=== PATIENT | female | born 1970 | race Caucasian/White ===

== ENCOUNTER 2016-08-14 11:38 | Emergency (ER) | payer MEDICARE ==
--- NOTE | 2016-08-14 12:20 | ER Document Report ---
ED Extremity Problem, Lower - General Chief Complaint: Leg Swelling Stated Complaint: SWELLING/PAIN LEFT LEG Time Seen by Provider: 08/14/16 12:11 Mode of Arrival: Ambulatory Information source: Patient TRAVEL OUTSIDE OF THE U.S. IN LAST 30 DAYS: No - HPI Patient complains to provider of: Pain, Swelling Location: Leg Occurred: Other - 2-3 days Onset/Duration: Gradual Quality of pain: Achy, Fullness, Pressure Severity: Moderate Pain Level: 3 Recent injury: No Exacerbated by: Movement Relieved by: Nothing Notes: Patient is a 45-year-old female who presents to the emergency room complaining of left lower extremity pain and swelling that has been going on for a few days , she recently moved to this area from [place], had an [address] 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, smoker denies chest pain or shortness of breath - Related Data Allergies/Adverse Reactions: enoxaparin [From Lovenox] Allergy (Verified 08/14/16 11:45) hypertention, bradycardia lamotrigine [From Lamictal] Allergy (Verified 08/14/16 11:45) Dada Jj syndrome lithium Allergy (Verified 08/14/16 11:45) throat swelling Past Medical History - General Information source: Patient - Social History Smoking Status: Former Smoker Frequency of alcohol use: Social Drug Abuse: None Family History: None Patient has suicidal ideation: No Patient has homicidal ideation: No Neurological Medical History: Reports: Hx Migraine Renal/ Medical History: Denies: Hx Peritoneal Dialysis GI Medical History: Reports: Hx Gastroesophageal Reflux Disease Musculoskeltal Medical History: Reports Hx Arthritis Past Surgical History: Reports: Hx Orthopedic Surgery - left foot Review of Systems - Review of Systems Constitutional: No symptoms reported EENT: No symptoms reported Cardiovascular: No symptoms reported Respiratory: No symptoms reported Gastrointestinal: No symptoms reported Genitourinary: No symptoms reported Female Genitourinary: No symptoms reported Musculoskeletal: See HPI Skin: No symptoms reported Hematologic/Lymphatic: No symptoms reported Neurological/Psychological: No symptoms reported -: Yes All other systems reviewed and negative Physical Exam - Vital signs Vitals: Temp Pulse Resp BP Pulse Ox 97.6 F 60 20 128/82 H 99 08/14/16 11:45 08/14/16 11:45 08/14/16 11:45 08/14/16 11:45 08/14/16 11:45 - Notes Notes: - General General appearance: Appears well, Alert In distress: None - HEENT Head: Normocephalic, Atraumatic Eyes: Normal Conjunctiva: Normal Extraocular movements intact: Yes Eyelashes: Normal Pupils: PERRL - Respiratory Respiratory status: No respiratory distress - Cardiovascular Rhythm: Regular - Abdominal Inspection: Normal - Back Back: Normal - Extremities General upper extremity: Normal inspection General lower extremity: Lower extremity with calf pain, swelling over medial malleolus, positive Homans sign distal sensation and motor is intact with 2+ DP pulses - Neurological Neuro grossly intact: Yes Orientation: AAOx4 [employer] Coma Scale Eye Opening: Spontaneous Héctro Coma Scale Verbal: Oriented [employer] Coma Scale Motor: Obeys Commands Héctor Coma Scale Total: 15 - Psychological Associated symptoms: Normal affect, Normal mood - Skin Skin Temperature: Warm Skin Moisture: Dry Skin Color: Normal Course - Re-evaluation Re-evalutation: 08/14/16 13:32 Extremity venous Doppler negative for DVT, patient will be discharged with instructions for follow-up, advised to return if symptoms worsen, patient acknowledges understanding and agreement with this plan - Vital Signs Vital signs: Temp Pulse Resp BP Pulse Ox 97.8 F 67 20 107/57 L 99 08/14/16 13:26 08/14/16 13:26 08/14/16 13:26 08/14/16 13:26 08/14/16 13:26 - Diagnostic Test Radiology reviewed: Image reviewed, Reports reviewed Discharge - Discharge Clinical Impression: Left leg pain Condition: Stable Disposition: HOME, SELF-CARE Instructions: Leg Pain Nonspecific ([facility]) Additional Instructions: Follow up with your primary care provider and an orthopedic surgeon in one to 2 days. Return to the emergency room immediately if symptoms worsen or any additional concerns. Ice and elevate the affected extremity. Limit weightbearing. Referrals: JULIET RICARDO MD [ACTIVE STAFF] - Follow up as needed
[2016-08-14 13:28] VITALS: BP 107/57
--- NOTE | 2016-08-14 16:36 | XCELERA REPORT ---
[address] [address] Lower Extremity Venous Evaluation Name: EVELIN DENG Age: 45 yrs Gender: Female : 1970 Patient Status: Preadmit Patient Location: ER Study Date: 08/14/2016 12:45 PM Procedure: Color flow and duplex imaging of the veins of the left lower extremity as well as the right Common Femoral vein. Reason For Study: LLE pain Ordering Physician: YVROSE SOTO Performed By: Martine Lancaster Right Sided Venous Evaluation The right common femoral vein is fully compressible. Spontaneous and phasic flow is present in the right common femoral vein. Left Sided Venous Evaluation Normal vessel filling wall to wall, compression and augmentation as well as Colour flow down to the infrageniculate veins. Critical Findings Called in to the ER. Interpretation Summary No duplex evidence of DVT or obstruction in the left lower extremity nor in the right Common Femoral vein. : YVROSE SOTO > Kike Browne
== END 2016-08-14 13:36 | disposition home or self-care (01) ==
LOC: ER 11:38
DX: M79.605 Pain in left leg (principal); M79.89 Other specified soft tissue disorders; Z87.891 Personal history of nicotine dependence
CPT/HCPCS: 93971; 99283

== ENCOUNTER 2016-10-28 15:09 | Emergency (ER) | payer MEDICARE ==
--- NOTE | 2016-10-28 16:04 | ER Document Report ---
ED Medical Screen (RME) - General Chief Complaint: Leg Pain Stated Complaint: LEG PAIN Time Seen by Provider: 10/28/16 15:58 Notes: This 46-year-old female patient comes emergency room complaining of left medial leg pain. She reports last week she saw her primary care provider complaining of pain around her ankle and she was sent for a venous Doppler on either Wednesday or Wednesday of last week. It was negative. She states 2 days later she began having pain in the proximal left medial calf area. Over the next few days the pain went straight down into her ankle and then into her foot. She states it does feel swollen. She states she elevated her legs yesterday but it did not help. She does take methotrexate. She does not take antiplatelet drugs by history. She had DVT and PE a few years ago. She is very tender to light palpation of the medial and anterior medial proximal calf region. She is not tender in the posterior calf. TRAVEL OUTSIDE OF THE U.S. IN LAST 30 DAYS: No - Related Data Allergies/Adverse Reactions: enoxaparin [From Lovenox] Allergy (Verified 10/28/16 15:16) hypertention, bradycardia lamotrigine [From Lamictal] Allergy (Verified 10/28/16 15:16) Dada Jj syndrome lithium Allergy (Verified 10/28/16 15:16) throat swelling Home Medications: Current Home Medications Hydroxychloroquine Sulfate 400 mg PO DAILY 10/28/16 [History] Linaclotide [Linzess] 290 mcg PO DAILY 10/28/16 [History] Lorazepam [Ativan 0.5 mg Tablet] 0.5 mg PO PRN PRN 10/28/16 [History] Lubiprostone [Amitiza 24 Mcg Capsule] 24 mcg PO BID 10/28/16 [History] Methotrexate Sodium/Pf [Methotrexate 25 mg/ml Vial] 25 mg IJ Q7D 10/28/16 [ History] Ropinirole HCl [Requip] 2 mg PO DAILY 10/28/16 [History] Zolpidem Tartrate [Ambien] 10 mg PO QHS 10/28/16 [History] Past Medical History Neurological Medical History: Reports: Hx Migraine Renal/ Medical History: Denies: Hx Peritoneal Dialysis GI Medical History: Reports: Hx Gastroesophageal Reflux Disease Musculoskeltal Medical History: Reports Hx Arthritis Past Surgical History: Reports: Hx Orthopedic Surgery - left foot Physical Exam - Vital signs Vitals: Temp Pulse Resp BP Pulse Ox 98.0 F 80 18 126/66 H 99 10/28/16 15:15 10/28/16 15:15 10/28/16 15:15 10/28/16 15:15 10/28/16 15:15 Course - Vital Signs Vital signs: Temp Pulse Resp BP Pulse Ox 98.0 F 80 18 126/66 H 99 10/28/16 15:15 10/28/16 15:15 10/28/16 15:15 10/28/16 15:15 10/28/16 15:15
[2016-10-28 16:34] LABS: ABSOLUTE EOSINOPHILS # (AUTO) 0.1 10^3/uL (0.0-0.6); ABSOLUTE LYMPHOCYTES (AUTO) 0.9 10^3/uL (0.5-4.7); ABSOLUTE MONOCYTES (AUTO) 0.2 10^3/uL (0.1-1.4); ABSOLUTE NEUT (AUTO) 4.6 10^3/uL (1.7-8.2); BASOPHILS % (AUTO) 0.4 % (0-2); HEMOGLOBIN 13.2 g/dL (12.0-15.5); HGB HCT DIFFERENCE 0.6; MEAN CORPUSCULAR HEMOGLOBIN 27.7 pg (27.0-33.4); MEAN CORPUSCULAR HGB CONC 33.7 g/dL (32.0-36.0); MEAN CORPUSCULAR VOLUME 82 fl (80-97); RED BLOOD COUNT 4.75 10^6/uL (3.72-5.28); RED CELL DISTRIBUTION WIDTH 14.4 % (11.5-14.0); SEGMENTED NEUTROPHILS % (AUTO) 78.6 % (42-78); WHITE BLOOD COUNT 5.9 10^3/uL (4.0-10.5)
[2016-10-28 16:54] LABS: ALANINE AMINOTRANSFERASE 37 U/L (9-52); ALBUMIN 4.4 g/dL (3.5-5.0); ALKALINE PHOSPHATASE 62 U/L (38-126); ANION GAP 11 (5-19); ASPARTATE AMINO TRANSFERASE 19 U/L (14-36); BILIRUBIN,DIRECT 0.3 mg/dL (0.0-0.4); BILIRUBIN,TOTAL 0.5 mg/dL (0.2-1.3); BLOOD UREA NITROGEN 10 mg/dL (7-20); CALCIUM 10.1 mg/dL (8.4-10.2); CARBON DIOXIDE 26 mmol/L (22-30); CHLORIDE 105 mmol/L (98-107); CREATININE RESULT 0.78 mg/dL (0.52-1.25); GLUCOSE 83 mg/dL (75-110); SODIUM 141.6 mmol/L (137-145); TOTAL PROTEIN 7.1 g/dL (6.3-8.2)
--- NOTE | 2016-10-28 17:09 | ER Document Report ---
ED Extremity Problem, Lower - General Mode of Arrival: Ambulatory Information source: Patient TRAVEL OUTSIDE OF THE [place] IN LAST 30 DAYS: No <IRINA WILL - Last Filed: 10/28/16 22:19> <SHANIQUA THOMPSON - Last Filed: 10/28/16 23:28> - General Chief Complaint: Leg Pain Stated Complaint: LEG PAIN Time Seen by Provider: 10/28/16 15:58 Notes: Patient is a 46-year-old female who presents to the emergency department today with complaints of left leg pain. Patient states she had a Doppler study done of her left lower extremity 1 week ago, and also in July both of which were negative. Patient complains of pain in her left medial leg radiating down into her foot which began two days after her last dopplar study, 5 days ago. (IRINA WILL) - Related Data Allergies/Adverse Reactions: enoxaparin [From Lovenox] Allergy (Verified 10/28/16 15:16) hypertention, bradycardia lamotrigine [From Lamictal] Allergy (Verified 10/28/16 15:16) Dada Jj syndrome lithium Allergy (Verified 10/28/16 15:16) throat swelling Home Medications: Current Home Medications Hydroxychloroquine Sulfate 400 mg PO DAILY 10/28/16 [History] Linaclotide [Linzess] 290 mcg PO DAILY 10/28/16 [History] Lorazepam [Ativan 0.5 mg Tablet] 0.5 mg PO PRN PRN 10/28/16 [History] Lubiprostone [Amitiza 24 Mcg Capsule] 24 mcg PO BID 10/28/16 [History] Methotrexate Sodium/Pf [Methotrexate 25 mg/ml Vial] 25 mg IJ Q7D 10/28/16 [ History] Ropinirole HCl [Requip] 2 mg PO DAILY 10/28/16 [History] Zolpidem Tartrate [Ambien] 10 mg PO QHS 10/28/16 [History] Past Medical History - General Information source: Patient - Social History Smoking Status: Never Smoker Cigarette use (# per day): No Frequency of alcohol use: None Drug Abuse: None Lives with: Family Family History: None Patient has suicidal ideation: No Patient has homicidal ideation: No Neurological Medical History: Reports: Hx Migraine GI Medical History: Reports: Hx Gastroesophageal Reflux Disease Musculoskeltal Medical History: Reports Hx Arthritis Past Surgical History: Reports: Hx Orthopedic Surgery - left foot <IRINA WILL - Last Filed: 10/28/16 22:19> Review of Systems - Review of Systems Constitutional: No symptoms reported EENT: No symptoms reported Cardiovascular: No symptoms reported Respiratory: No symptoms reported Gastrointestinal: No symptoms reported Genitourinary: No symptoms reported Female Genitourinary: No symptoms reported Musculoskeletal: See HPI, Other - left leg pain Skin: No symptoms reported Hematologic/Lymphatic: No symptoms reported Neurological/Psychological: No symptoms reported -: Yes All other systems reviewed and negative <IRINA WILL - Last Filed: 10/28/16 22:19> Physical Exam <IRINA WILL - Last Filed: 10/28/16 22:19> <SHANIQUA THOMPSON - Last Filed: 10/28/16 23:28> - Vital signs Vitals: Temp Pulse Resp BP Pulse Ox 98.0 F 80 18 126/66 H 99 10/28/16 15:15 10/28/16 15:15 10/28/16 15:15 10/28/16 15:15 10/28/16 15:15 - Notes Notes: Physical Exam: General: Alert, appears well. HEENT: Normocephalic. Atraumatic. PERRL. Extraocular movements intact. Oropharynx clear. Neck: Supple. Non-tender. Respiratory: No respiratory distress. Clear and equal breath sounds bilaterally. Cardiovascular: Regular rate and rhythm. Abdominal: Normal Inspection. Non-tender. No distension. Normal Bowel Sounds. Back: Non-tender. No deformity or step off. Extremities: Moves all four extremities. Upper extremities: Normal inspection. Normal ROM. Lower extremities: See skin exam Neurological: Normal cognition. AAOx4. Normal speech. Psychological: Normal affect. Normal Mood. Skin: Erythematous changes to medial aspect of left proximal leg with associated tenderness with palpation. (IRINA WILL) Course - Laboratory Result Diagrams: 10/28/16 16:10 10/28/16 16:10 <IRINA WILL - Last Filed: 10/28/16 22:19> - Laboratory Result Diagrams: 10/28/16 16:10 10/28/16 16:10 <SHANIQUA THOMPSON - Last Filed: 10/28/16 23:28> - Re-evaluation Re-evalutation: 10/28/16 Patient with signs and symptoms of superficial thrombophlebitis and Dopplers showing this as well. Patient recommended to do warm packs and take naproxen. Apparently cannot do this because of ulcer. Recommended to take Tylenol. Stable for discharge. Follow-up with PMD. (SHANIQUA THOMPSON) - Vital Signs Vital signs: Temp Pulse Resp BP Pulse Ox 98.0 F 88 18 145/78 H 98 10/28/16 15:15 10/28/16 20:58 10/28/16 20:58 10/28/16 20:58 10/28/16 20:58 - Laboratory Laboratory results interpreted by me: 10/28/16 16:10 RDW 14.4 H Seg Neutrophils % 78.6 H Discharge <IRINA WILL - Last Filed: 10/28/16 22:19> <SHANIQUA THOMPSON - Last Filed: 10/28/16 23:28> - Discharge Clinical Impression: Superficial thrombophlebitis Qualifiers: Superficial thrombophlebitis-Involved body area: lower extremity Laterality: left Qualified Code(s): I80.02 - Phlebitis and thrombophlebitis of superficial vessels of left lower extremity Condition: Stable Disposition: HOME, SELF-CARE Instructions: Superficial Phlebitis ([facility]) Prescriptions: Naproxen [Naprosyn 250 mg Tablet] 250 mg PO DAILY PRN #20 tablet PRN Reason: Referrals: GILDARDO MANCUSO MD [Primary Care Provider] - Follow up as needed Scribe Attestation: 10/28/16 23:28 I personally performed the services described in the documentation, reviewed and edited the documentation which was dictated to the scribe in my presence, and it accurately records my words and actions. (SHANIQUA THOMPSON) Scribe Documentation - Scribe Written by Leanna:: Leanna Gutierrez, 10/28/2016 2224 acting as scribe for :: Sari <IRINA WILL - Last Filed: 10/28/16 22:19>
--- NOTE | 2016-10-28 17:37 | RADIOLOGY REPORT (SQ) ---
EXAM DESCRIPTION: ANKLE LEFT COMPLETE COMPLETED DATE/TIME: 10/28/2016 5:06 pm REASON FOR STUDY: pain COMPARISON: None. NUMBER OF VIEWS: Three views. TECHNIQUE: AP, lateral, and oblique radiographic images acquired of the left ankle. LIMITATIONS: None. FINDINGS: MINERALIZATION: Normal. BONES: No fracture or dislocation. Plantar calcaneal spurs are present. JOINTS: No effusions. SOFT TISSUES: No soft tissue swelling. No foreign body. OTHER: No other significant finding. IMPRESSION: Calcaneal spurs with no acute abnormality. TECHNICAL DOCUMENTATION: JOB ID: [id number] [employer]- All Rights Reserved
--- NOTE | 2016-10-28 17:38 | RADIOLOGY REPORT (SQ) ---
EXAM DESCRIPTION: TIBIA FIBULA LEFT COMPLETED DATE/TIME: 10/28/2016 5:06 pm REASON FOR STUDY: pain COMPARISON: None. NUMBER OF VIEWS: Two views. TECHNIQUE: Two radiographic images acquired of the left tibia and fibula to include the knee and ank le in at least one projection. LIMITATIONS: None. FINDINGS: MINERALIZATION: Normal. BONES: No acute fracture or dislocation. No worrisome bone lesions. SOFT TISSUES: No obvious swelling or foreign body. OTHER: No other significant finding. IMPRESSION: NEGATIVE STUDY OF THE LEFT TIBIA AND FIBULA. NO RADIOGRAPHIC EVIDENCE OF ACUTE INJURY. TECHNICAL DOCUMENTATION: JOB ID: [id number] [employer]- All Rights Reserved
--- NOTE | 2016-10-28 20:51 | RADIOLOGY REPORT (SQ) ---
EXAM DESCRIPTION: VENOUS UNILATERAL LOWER COMPLETED DATE/TIME: 10/28/2016 8:37 pm REASON FOR STUDY: L leg pain, TTP COMPARISON: 08/14/2016 TECHNIQUE: Dynamic and static hensley scale and color images acquired of the right leg venous system. S elected spectral images acquired with additional compression and augmentation maneuvers. The contrala teral common femoral vein and saphenofemoral junction were also imaged. Images stored on PACS. LIMITATIONS: None. FINDINGS: COMMON FEMORAL: Normal phasicity, compression and augmentation. No visualized echogenic ma terial on hensley scale. No defects on color images. FEMORAL: Normal compression and augmentation. No visualized echogenic material on hensley scale. No defe cts on color images. POPLITEAL: Normal compression, augmentation. No visualized echogenic material on hensley scale. No defec ts on color images. CALF VESSELS: Normal compression, augmentation. No visualized echogenic material on hensley scale. No de fects on color images. GSV and SSV: There is acute thrombus in the left greater saphenous vein. The small saphenous vein is competent. ANY DEEP VENOUS INSUFFICIENCY: Not evaluated. ANY EVIDENCE OF POPLITEAL CYST: No. OTHER: No other significant finding. CONTRALATERAL COMMON FEMORAL VEIN AND SAPHENOFEMORAL JUNCTION: Normal phasicity, compression and augmentation. No visualized echogenic material on hensley scale. No de fects on color images. IMPRESSION: 1. No evidence of DVT. 2. Acute thrombus in the left greater saphenous vein. This extends from the knee to the ankle. TECHNICAL DOCUMENTATION: JOB ID: [id number] [employer]- All Rights Reserved
[2016-10-28 20:58] VITALS: BP 145/78
== END 2016-10-28 20:58 | disposition home or self-care (01) ==
LOC: ER 15:09
DX: I80.02 Phlebitis and thrombophlebitis of superficial vessels of left lower extremity (principal); M79.605 Pain in left leg; Z88.8 Allergy status to other drugs, medicaments and biological substances
CPT/HCPCS: 36415; 80053; 85025; 93971; 99284

== ENCOUNTER → 2016-12-21 | Outpatient (CLI) | payer MEDICARE ==
--- NOTE | 2016-12-21 11:04 | RADIOLOGY REPORT (SQ) ---
EXAM DESCRIPTION: VENOUS UNILATERAL LOWER COMPLETED DATE/TIME: 12/21/2016 10:41 am REASON FOR STUDY: LEFT ACUTE THROMBOSIS I82.412 I82.412 ACUTE EMBOLISM AND THROMBOSIS OF LEFT FEMOR AL VEIN COMPARISON: 10/28/2016 TECHNIQUE: Dynamic and static hensley scale and color images acquired of the left leg venous system. Se lected spectral images acquired with additional compression and augmentation maneuvers. The contralat eral common femoral vein and saphenofemoral junction were also imaged. Images stored on PACS. LIMITATIONS: None. FINDINGS: COMMON FEMORAL: Normal phasicity, compression and augmentation. No visualized echogenic ma terial on hensley scale. No defects on color images. FEMORAL: Normal compression and augmentation. No visualized echogenic material on hensley scale. No defe cts on color images. POPLITEAL: Normal compression, augmentation. No visualized echogenic material on hensley scale. No defec ts on color images. CALF VESSELS: Normal compression, augmentation. No visualized echogenic material on hensley scale. No de fects on color images. GSV and SSV: Thrombus in the greater saphenous vein. No extension. ANY DEEP VENOUS INSUFFICIENCY: Not evaluated. ANY EVIDENCE OF POPLITEAL CYST: No. OTHER: No other significant finding. CONTRALATERAL COMMON FEMORAL VEIN AND SAPHENOFEMORAL JUNCTION: Normal phasicity, compression and augmentation. No visualized echogenic material on hensley scale. No de fects on color images. IMPRESSION: Unchanged thrombosis left greater saphenous vein. No evidence of acute deep vein thromb osis. TECHNICAL DOCUMENTATION: JOB ID: [id number] [employer]- All Rights Reserved
== END ==
LOC: SP 09:50
PROVIDERS: ATTEND Internal Medicine
DX: I82.412 Acute embolism and thrombosis of left femoral vein (principal)
CPT/HCPCS: 93971

== ENCOUNTER → 2017-04-21 | Outpatient (CLI) | payer MEDICARE ==
--- NOTE | 2017-04-21 16:37 | RADIOLOGY REPORT (SQ) ---
EXAM DESCRIPTION: KUB/ABDOMEN (SINGLE VIEW) COMPLETED DATE/TIME: 04/21/2017 10:06 am REASON FOR STUDY: CONSTIPATION - SLOW TRANSIT COMPARISON: None. NUMBER OF VIEWS: One view. TECHNIQUE: Supine radiographic image of the abdomen acquired. LIMITATIONS: None. FINDINGS: BOWEL GAS PATTERN: Normal bowel gas pattern. No dilated loops. CALCIFICATIONS: No suspicious calcifications. SOFT TISSUES: No gross mass or suggestion of organomegaly. HARDWARE: Multiple clips near the midline lower abdomen. BONES: No bone lesions or fracture. OTHER: No other significant finding. IMPRESSION: NO RADIOGRAPHIC EVIDENCE FOR ACUTE ABDOMINAL DISEASE.
== END ==
LOC: RAD 09:35
PROVIDERS: ATTEND Physician Assistant Surgical
DX: K59.01 Slow transit constipation (principal)
CPT/HCPCS: 74018

== ENCOUNTER → 2017-07-22 | Outpatient (CLI) | payer MEDICARE ==
--- NOTE | 2017-07-22 15:46 | RADIOLOGY REPORT (SQ) ---
EXAM DESCRIPTION: HAND LEFT 3 VIEWS COMPLETED DATE/TIME: 07/22/2017 2:19 pm REASON FOR STUDY: SPRAIN OF INTERPHALANGEAL JOINT OF RIGHT INDEX FINGER, INIT (S63.630A) S63.630A S PRAIN OF INTERPHALANGEAL JOINT OF RIGHT INDEX FING COMPARISON: None. EXAM PARAMETERS: NUMBER OF VIEWS: Three views. TECHNIQUE: AP, lateral and oblique radiographic images acquired of the left hand. LIMITATIONS: None. FINDINGS: MINERALIZATION: Normal. BONES: Tiny avulsion fragment off the ulnar aspect 2nd digit middle phalanx at the PIP joint. This c ould be acute or chronic. JOINTS: No malalignment SOFT TISSUES: Mild diffuse soft tissue swelling at the left 2nd finger PIP joint. No radiopaque fore ign body or soft tissue gas.. No foreign body. OTHER: No other significant finding. IMPRESSION: Tiny avulsion fragment off the ulnar aspect 2nd digit middle phalanx, at the PIP joint w ith overlying soft tissue swelling. This is worrisome for tiny acute avulsion fracture TECHNICAL DOCUMENTATION: JOB ID: [id number] [employer]- All Rights Reserved Reading location - IP/workstation name: [email or web address]
== END ==
LOC: RAD 14:02
PROVIDERS: ATTEND Family Medicine
DX: S63.630A Sprain of interphalangeal joint of right index finger, initial encounter (principal); X58.XXXA Exposure to other specified factors, initial encounter

== ENCOUNTER → 2017-11-11 | Outpatient (CLI) | payer MEDICARE ==
[~2017-11-11] MED LIST: FUROSEMIDE INJ/PF 20 MG/2 ML SDV IV ONE; LORAZEPAM INJ 2 MG/1 ML VIAL IV ONE; MORPHINE SULFATE 10 MG/ML INJ IV ONE
--- NOTE | 2017-11-11 10:25 | RADIOLOGY REPORT (SQ) ---
EXAM DESCRIPTION: CT ABD/PELVIS WITH IV ORAL COMPLETED DATE/TIME: 11/11/2017 8:41 am REASON FOR STUDY: ABDOMINAL PAIN, RIGHT SIDE R10.9 UNSPECIFIED ABDOMINAL PAIN COMPARISON: None. TECHNIQUE: CT scan of the abdomen and pelvis performed with intravenous and oral contrast using chloe presley scanning technique with dynamic intravenous contrast injection. Images reviewed with lung, soft t issue, and bone windows. Reconstructed coronal and sagittal MPR images reviewed. Delayed images for e valuation of the urinary system also acquired. All images stored on PACS. All CT scanners at this facility use dose modulation, iterative reconstruction, and/or weight based d osing when appropriate to reduce radiation dose to as low as reasonably achievable (ALARA). [facility]: Dose Right [facility]: CareDose [facility]: Dose Right [facility]: Teradose 4D [facility]: Pogoapp CONTRAST TYPE AND DOSE: 100 cc Omnipaque 350- low osmolar. RENAL FUNCTION: None required. The patient is less than 50 years old. RADIATION DOSE: . LIMITATIONS: None. FINDINGS: LOWER CHEST: No significant findings. No nodules or infiltrates. LIVER: Normal size. No masses. No dilated ducts. SPLEEN: Normal size. No focal lesions. PANCREAS: No masses. No significant calcifications. No adjacent inflammation or peripancreatic fluid collections. Pancreatic duct not dilated. GALLBLADDER: No identified stones by CT criteria. No inflammatory changes to suggest cholecystitis. ADRENAL GLANDS: No significant masses or asymmetry. RIGHT KIDNEY AND URETER: No solid masses. No significant calcifications. No hydronephrosis or hyd roureter. LEFT KIDNEY AND URETER: No solid masses. No significant calcifications. No hydronephrosis or hydr oureter. AORTA AND VESSELS: No aneurysm. No dissection. Renal arteries, SMA, celiac without stenosis. RETROPERITONEUM: No retroperitoneal adenopathy, hemorrhage or masses. BOWEL AND PERITONEAL CAVITY: No obstruction. No visualized masses. No free fluid. No inflammatory ch anges or thickening of bowel wall. APPENDIX: Surgically absent. PELVIS: 2 cm fundal fibroid. Normal bladder. No free fluid. ABDOMINAL WALL: Upper abdominal anterior wall hernia containing fat. BONES: No significant or acute findings. OTHER: No other significant finding. IMPRESSION: Uterine fibroid. No acute findings. TECHNICAL DOCUMENTATION: JOB ID: [id number] Quality ID # [id number]: Final reports with documentation of one or more dose reduction techniques (e.g., Au tomated exposure control, adjustment of the mA and/or kV according to patient size, use of iterative reconstruction technique) 2010 [employer]- All Rights Reserved Reading location - IP/workstation name: [email or web address]
== END ==
LOC: RAD 07:38
PROVIDERS: ATTEND Surgery
DX: R10.9 Unspecified abdominal pain (principal)
CPT/HCPCS: 74177

== ENCOUNTER → 2017-11-30 | Outpatient (CLI) | payer MEDICARE ==
--- NOTE | 2017-11-30 14:26 | RADIOLOGY REPORT (SQ) ---
EXAM DESCRIPTION: VENOUS UNILATERAL LOWER COMPLETED DATE/TIME: 11/30/2017 2:15 pm REASON FOR STUDY: LT FV THROMBUS/ SWELLING I82.412 ACUTE EMBOLISM AND THROMBOSIS OF LEFT FEMORAL VE IN COMPARISON: 12/21/2016 TECHNIQUE: Dynamic and static hensley scale and color images acquired of the left leg venous system. Se lected spectral images acquired with additional compression and augmentation maneuvers. The contralat eral common femoral vein and saphenofemoral junction were also imaged. Images stored on PACS. LIMITATIONS: None. FINDINGS: LEFT COMMON FEMORAL: Normal phasicity, compression and augmentation. No visualized echogenic material on g ray scale. No defects on color images. FEMORAL: Normal compression and augmentation. No visualized echogenic material on hensley scale. No defe cts on color images. POPLITEAL: Normal compression, augmentation. No visualized echogenic material on hensley scale. No defec ts on color images. CALF VESSELS: Normal compression, augmentation. No visualized echogenic material on hensley scale. No de fects on color images. GSV and SSV: Normal compression, augmentation. No visualized echogenic material on hensley scale. No def ects on color images. ANY DEEP VENOUS INSUFFICIENCY: Not evaluated. ANY EVIDENCE OF POPLITEAL CYST: No. OTHER: No other significant finding. RIGHT COMMON FEMORAL VEIN AND SAPHENOFEMORAL JUNCTION: Normal phasicity, compression and augmentation. No visualized echogenic material on hensley scale. No de fects on color images. IMPRESSION: NO EVIDENCE OF DVT OR SVT IN THE LEFT LEG. TECHNICAL DOCUMENTATION: JOB ID: [id number] [employer]- All Rights Reserved Reading location - IP/workstation name: [email or web address]
== END ==
LOC: SP 12:09
PROVIDERS: ATTEND Internal Medicine
DX: I82.412 Acute embolism and thrombosis of left femoral vein (principal)
CPT/HCPCS: 93971

== ENCOUNTER → 2017-12-30 | Outpatient (CLI) | payer MEDICARE ==
[2017-12-30 15:08] LABS: ABSOLUTE LYMPHOCYTES (AUTO) 0.9 10^3/uL (0.5-4.7); ABSOLUTE MONOCYTES (AUTO) 0.3 10^3/uL (0.1-1.4); ABSOLUTE NEUT (AUTO) 2.5 10^3/uL (1.7-8.2); BASOPHILS % (AUTO) 0.9 % (0-2); HEMATOCRIT 39.1 % (36.0-47.0); HEMOGLOBIN 13.2 g/dL (12.0-15.5); LYMPHOCYTES % (AUTO) 23.3 % (13-45); MEAN CORPUSCULAR HEMOGLOBIN 27.3 pg (27.0-33.4); MEAN CORPUSCULAR HGB CONC 33.8 g/dL (32.0-36.0); MEAN CORPUSCULAR VOLUME 81 fl (80-97); MONOCYTES % (AUTO) 7.9 % (3-13); PLATELET COUNT 189 10^3/uL (150-450); RED BLOOD COUNT 4.85 10^6/uL (3.72-5.28); RED CELL DISTRIBUTION WIDTH 15.1 % (11.5-14.0); RETICULOCYTE COUNT (AUTO) 1.86 % (0.66-2.85); SEGMENTED NEUTROPHILS % (AUTO) 66.9 % (42-78); TOTAL CELLS COUNTED % (AUTO) 100 %; WHITE BLOOD COUNT 3.7 10^3/uL (4.0-10.5)
[2017-12-30 15:22] LABS: ANION GAP 9 (5-19); BLOOD UREA NITROGEN 12 mg/dL (7-20); CALCIUM 9.5 mg/dL (8.4-10.2); CARBON DIOXIDE 27 mmol/L (22-30); CHLORIDE 104 mmol/L (98-107); GLUCOSE 90 mg/dL (75-110); POTASSIUM 3.9 mmol/L (3.6-5.0); SODIUM 139.5 mmol/L (137-145)
[2017-12-30 16:28] LABS: FOLATE 4.62 ng/mL (>2.76)
[2017-12-30 16:29] LABS: IRON(TIBC) < 10.1 ug/dL (37-170)
== END ==
LOC: LAB 14:45
PROVIDERS: ATTEND Internal Medicine
DX: D64.9 Anemia, unspecified (principal); R53.83 Other fatigue; E53.8 Deficiency of other specified B group vitamins
CPT/HCPCS: 36415; 80048; 82607; 82728; 82746; 83540; 83550; 85025; 85045

== ENCOUNTER 2018-01-13 09:31 | Outpatient (CLI) | payer MEDICARE ==
[~2018-01-13 09:31] MED LIST changes: +FERUMOXYTOL (NON-ESRD) 510 MG/NS 100 ML IV PRN; -FUROSEMIDE INJ/PF 20 MG/2 ML SDV IV ONE; -LORAZEPAM INJ 2 MG/1 ML VIAL IV ONE; -MORPHINE SULFATE 10 MG/ML INJ IV ONE; +NORMAL SALINE 250 ML IV PRN
[2018-01-13 10:34] LABS: ABSOLUTE EOSINOPHILS # (AUTO) 0.1 10^3/uL (0.0-0.6); ABSOLUTE LYMPHOCYTES (AUTO) 1.1 10^3/uL (0.5-4.7); ABSOLUTE MONOCYTES (AUTO) 0.5 10^3/uL (0.1-1.4); ABSOLUTE NEUT (AUTO) 3.7 10^3/uL (1.7-8.2); BASOPHILS % (AUTO) 0.9 % (0-2); EOSINOPHILS % (AUTO) 1.7 % (0-6); HEMATOCRIT 36.5 % (36.0-47.0); HEMOGLOBIN 12.5 g/dL (12.0-15.5); LYMPHOCYTES % (AUTO) 19.8 % (13-45); MEAN CORPUSCULAR HEMOGLOBIN 27.3 pg (27.0-33.4); MEAN CORPUSCULAR HGB CONC 34.2 g/dL (32.0-36.0); MEAN CORPUSCULAR VOLUME 80 fl (80-97); MONOCYTES % (AUTO) 8.8 % (3-13); PLATELET COUNT 230 10^3/uL (150-450); RED BLOOD COUNT 4.57 10^6/uL (3.72-5.28); RED CELL DISTRIBUTION WIDTH 14.8 % (11.5-14.0); SEGMENTED NEUTROPHILS % (AUTO) 68.8 % (42-78); TOTAL CELLS COUNTED % (AUTO) 100 %; WHITE BLOOD COUNT 5.3 10^3/uL (4.0-10.5)
[2018-01-13 10:39] VITALS: BP 130/55
[2018-01-13 10:58] LABS: ALANINE AMINOTRANSFERASE 30 U/L (9-52); ALBUMIN 4.1 g/dL (3.5-5.0); ALKALINE PHOSPHATASE 57 U/L (38-126); ANION GAP 9 (5-19); ASPARTATE AMINO TRANSFERASE 27 U/L (14-36); BILIRUBIN,DIRECT 0.3 mg/dL (0.0-0.4); BILIRUBIN,TOTAL 0.5 mg/dL (0.2-1.3); BLOOD UREA NITROGEN 16 mg/dL (7-20); CALCIUM 9.9 mg/dL (8.4-10.2); CARBON DIOXIDE 27 mmol/L (22-30); CHLORIDE 104 mmol/L (98-107); GLUCOSE 73 mg/dL (75-110); POTASSIUM 4.2 mmol/L (3.6-5.0); SODIUM 140.2 mmol/L (137-145)
== END 2018-01-13 11:56 | disposition home or self-care (01) ==
LOC: II 09:31 → 5TH 09:32 → II 11:56
PROVIDERS: ATTEND Internal Medicine
PROC: 3E033GC Introduction of Other Therapeutic Substance into Peripheral Vein, Percutaneous Approach (ICD-10-PCS; principal; 2018-01-13)
DX: D50.9 Iron deficiency anemia, unspecified (principal); K90.9 Intestinal malabsorption, unspecified
CPT/HCPCS: 36415; 82728; 83540; 83550; 85025; 80053; 96367; Q0138; 96365

== ENCOUNTER 2018-01-20 09:31 | Outpatient (CLI) | payer MEDICARE ==
[2018-01-20 09:55] VITALS: BP 119/69
== END 2018-01-20 10:31 | disposition home or self-care (01) ==
LOC: II 09:31 → 5TH 09:52 → II 10:31
PROVIDERS: ATTEND Internal Medicine
PROC: 3E033GC Introduction of Other Therapeutic Substance into Peripheral Vein, Percutaneous Approach (ICD-10-PCS; principal; 2018-01-20)
DX: D50.9 Iron deficiency anemia, unspecified (principal); K90.9 Intestinal malabsorption, unspecified
CPT/HCPCS: 96365; Q0138